=== PATIENT | female | born 1995 | race Caucasian/White ===

== ENCOUNTER 2018-01-08 10:04 | Inpatient (IN) | payer MEDICAID ==
[~2018-01-08 10:04] MED LIST: LIDOCAINE 1.5%/EPI MPF (SDV) 30 ML VIAL; OXYTOCIN 30 UNITS/LR 500 ML BAG IV
[2018-01-08] MEDS ORDERED: LACTATED RINGER'S 1,000 ML IV (10:36)
[2018-01-08] MEDS ORDERED: METHYLERGONOVINE 0.2 MG INJ IM ×2 (11:00→18:00)
[2018-01-08] MEDS ORDERED: CEFAZOLIN 2 GM/50 ML (PMX) 50 ML IV (11:00)
[2018-01-08] MEDS ORDERED: MISOPROSTOL 200 MCG TAB PR ×2 (11:00→18:00)
[2018-01-08] MEDS ORDERED: OXYTOCIN 30 UNITS/LR 500 ML IV ×3 (11:00→18:00)
[2018-01-08] MEDS ORDERED: CARBOPROST 250 MCG INJ IM ×2 (11:00→18:00)
[2018-01-08 11:14] LABS: ADD MAN DIFF? NO
[2018-01-08 11:18] LABS: BASOPHILS % 0.2 % (0.0-2.0); HEMATOCRIT 35.1 % (37.0-47.0); HEMOGLOBIN 11.6 g/dl (12.0-16.0); LYMPHOCYTES # 0.6 10^3/ul (0.8-2.9); LYMPHOCYTES % 4.6 % (15.0-51.0); MEAN CORPUSCULAR HEMOGLOBIN 29.8 pg (29.0-33.0); MEAN CORPUSCULAR VOLUME 90.2 fl (82.0-101.0); MEAN PLATELET VOLUME 10.4 fl (7.4-10.4); MONOCYTES % 6.8 % (0.0-11.0); NEUTROPHIL # 12.2 10^3/ul (1.6-7.5); NEUTROPHILS % 87.6 % (39.0-77.0); PLATELET COUNT 353 10^3/UL (140-415); RED BLOOD COUNT 3.89 10^6/ul (4.20-5.40); RED CELL DISTRIBUTION WIDTH 12.8 % (11.5-14.5)
[2018-01-08 11:49] LABS: INR 0.89; PROTIME 12.1 Sec (11.9-14.9); PT RATIO 0.9
[2018-01-08 11:50] LABS: PARTIAL THROMBOPLASTIN TIME 26.9 Sec (25.0-35.0)
[2018-01-08] MEDS ORDERED: FENTAnyl 2MCG/ML-ROPIV 0.2% 100 ML (12:06)
[2018-01-08] MEDS ORDERED: CEFAZOLIN 1 GM INJ (13:16)
[2018-01-08] MEDS ORDERED: PHENYLephrine (100 MCG/ML) 5ML SYG ×2 (13:21→13:41)
[2018-01-08] MEDS ORDERED: ONDANSETRON 4 MG INJ (13:21)
[2018-01-08] MEDS ORDERED: OXYTOCIN 10 UNIT INJ (13:22)
[2018-01-08] MEDS ORDERED: ONDANSETRON 4 MG INJ IV (13:30)
[2018-01-08] MEDS ORDERED: DIPHENHYDRAMINE 50 MG INJ IV (13:30)
[2018-01-08] MEDS ORDERED: morphine 2 MG INJ IV (13:30)
[2018-01-08] MEDS ORDERED: NALOXONE (0.4 MG/ML) INJ IV (13:30)
[2018-01-08] MEDS ORDERED: METOCLOPRAMIDE 10 MG INJ (13:38)
[2018-01-08] MEDS ORDERED: PHENYLephrine 10 MG INJ (13:45)
[2018-01-08] MEDS ORDERED: morphine SULFATE/PF (10 MG/10 ML) INJ (13:49)
[2018-01-08] MEDS ORDERED: MEPERIDINE 100 MG INJ (13:53)
[2018-01-08] MEDS: OXYTOCIN 30 UNITS/LR 500 ML IV (17:48)
[2018-01-08] MEDS: LACTATED RINGER'S 1,000 ML IV (17:48)
[2018-01-08] MEDS ORDERED: NA PHOSPHATE/BIPHOS 133 ML ENEMA PR (18:00)
[2018-01-08] MEDS ORDERED: NACL 0.9% 3 ML SYG IV (18:00)
[2018-01-08] MEDS ORDERED: LANOLIN 7 GM TUBE TOP (18:00)
[2018-01-08 18:21] LABS: HEPATITIS B SURFACE ANTIGEN NEGATIVE (NEGATIVE)
[2018-01-08 19:16] LABS: RAPID PLASMA REAGIN NONREACTIVE (NR)
[2018-01-09] MEDS: LACTATED RINGER'S 1,000 ML IV ×3 (02:12→16:08)
[2018-01-09] MEDS: KETOROLAC 30 MG INJ IV (05:45)
[2018-01-09 09:07] LABS: ADD MAN DIFF? NO
[2018-01-09 09:10] LABS: BASOPHILS % 0.1 % (0.0-2.0); EOSINOPHILS % 0.1 % (0.0-7.0); HEMATOCRIT 28.1 % (37.0-47.0); HEMOGLOBIN 9.1 g/dl (12.0-16.0); LYMPHOCYTES # 1.4 10^3/ul (0.8-2.9); LYMPHOCYTES % 10.7 % (15.0-51.0); MEAN CORPUSCULAR HGB CONC 32.4 g/dl (32.0-37.0); MEAN CORPUSCULAR VOLUME 92.7 fl (82.0-101.0); MEAN PLATELET VOLUME 10.3 fl (7.4-10.4); MONOCYTE # 0.9 10^3/ul (0.3-0.9); MONOCYTES % 6.8 % (0.0-11.0); NEUTROPHILS % 81.9 % (39.0-77.0); PLATELET COUNT 286 10^3/UL (140-415); RED BLOOD COUNT 3.03 10^6/ul (4.20-5.40); RED CELL DISTRIBUTION WIDTH 13.2 % (11.5-14.5)
[2018-01-09 09:10] LABS: WHITE BLOOD COUNT 13.4 10^3/ul (4.8-10.8)
[2018-01-09] MEDS: IBUPROFEN 800 MG TAB PO ×2 (14:00→22:20)
[2018-01-09] MEDS: HYDROCODONE/APAP (5/325) TAB PO (18:01)
[2018-01-10] MEDS: IBUPROFEN 800 MG TAB PO ×3 (05:26→21:52)
[2018-01-10] MEDS: LACTATED RINGER'S 1,000 ML IV ×2 (09:48→17:48)
[2018-01-11] MEDS: LACTATED RINGER'S 1,000 ML IV (01:48)
[2018-01-11] MEDS: IBUPROFEN 800 MG TAB PO (05:27)
[2018-01-11] MEDS: MEASLES,MUMPS,RUBELLA VACCINE INJ SC* (08:23)
[2018-01-11] MEDS: DIPHTH/TET/ACEL PERTUSS (ADULT) 0.5 ML VIAL IM* (11:47)
== END 2018-01-11 12:05 | disposition home or self-care (01) | DRG 766 ==
LOC: OBT 10:04 → L-D 10:04 → OBT 10:29 → L-D 10:29 → PP1 17:29
PROVIDERS: Obstetrics & Gynecology
PROC: 10D00Z1 Extraction of Products of Conception, Low, Open Approach (ICD-10-PCS; principal; 2018-01-08)
DX: O32.8XX0 Maternal care for other malpresentation of fetus, not applicable or unspecified (principal); Z3A.38 38 weeks gestation of pregnancy; Z37.0 Single live birth
CPT/HCPCS: 76818; 85025; 85610; 85730; 86592; 86850; 86900; 86901; 87340; 90715; 99464